=== PATIENT | female | born 1985 | race Caucasian/White ===

== ENCOUNTER → 2019-12-15 14:02 | Outpatient (BNVA) | payer MEDICAID, SELFPAY | PROVIDERS: PCP Internal Medicine; Referring Provider Internal Medicine; Visit Provider Surgery | DX: Z11.0 Encounter for screening for intestinal infectious diseases (principal) | CPT/HCPCS: 99211 ==

== ENCOUNTER 2019-12-15 16:22 | Outpatient (REF) | payer MEDICAID, SELFPAY ==
[2019-12-16 14:27] LABS: H Pylori Breath Test NOT DETECTED (NOT DETECTED)
== END 2019-12-15 16:23 | disposition home or self-care (01) ==
LOC: HO.LNP 16:22
PROVIDERS: Visit Provider Surgery
DX: E66.9 Obesity, unspecified (principal)
CPT/HCPCS: 83013

== ENCOUNTER → 2019-12-18 16:44 | Outpatient (BNVA) | payer MEDICAID, SELFPAY | PROVIDERS: PCP Internal Medicine; Referring Provider Internal Medicine; Visit Provider Dietitian, Registered | DX: Z76.89 Persons encountering health services in other specified circumstances (principal) ==

== ENCOUNTER → 2019-12-21 11:06 | Outpatient (BNVA) | payer MEDICAID, SELFPAY | PROVIDERS: PCP Internal Medicine; Referring Provider Internal Medicine; Visit Provider Surgery | DX: E66.9 Obesity, unspecified (principal); Z68.36 Body mass index [BMI] 36.0-36.9, adult | CPT/HCPCS: 99213 ==

== ENCOUNTER 2019-12-22 09:17 | Outpatient (REF) | payer MEDICAID, SELFPAY ==
--- NOTE | 2019-12-22 | US_ITS ---
EXAMINATION: US COMPLETE ABDOMEN WITH LIVER ELASTOGRAPHY CLINICAL INFORMATION: Morbid obesity. Preop COMPARISON: None. TECHNIQUE: Real-time imaging of the abdominal viscera. Noninvasive ultrasound liver fibrosis assessment is performed using Monik ElastPQ point quantification shear wave elastography (pSWE) with a 5 MHz transducer. Multiple elastography samples are obtained. FINDINGS: PANCREAS: The visualized pancreatic head and body are normal in appearance. The remainder of the pancreas is obscured from visualization by the overlying bowel gas. ABDOMINAL AORTA: The proximal, middle, and distal aortic segments are normal in caliber. INFERIOR VENA CAVA: Visualized portions are normal. LIVER: Liver echotexture is increased. The liver is normal in size and shape. No focal lesion or intrahepatic biliary duct dilatation. The right lobe measures 14 cm in length. The left lobe measures 12 cm in length. The main portal vein is patent with appropriate hepatopedal flow. Shear wave elastography provides a median stiffness of 1.1 m/s (reference: normal median stiffness is 0.81 - 1.22 m/s). The IQR/median stiffness to assess sampling precision is 0.1 (reference: optimal IQR/median stiffness is under 0.3). GALLBLADDER: The gallbladder has been removed. COMMON BILE DUCT: Normal in caliber measuring 0.6 cm in diameter. RIGHT KIDNEY: Normal. No hydronephrosis. No renal calculi or focal parenchymal lesions. The kidney measures 12 cm in maximum dimension. LEFT KIDNEY: Normal. No hydronephrosis. No renal calculi or focal parenchymal lesions. The kidney measures 10.5 cm in maximum dimension. SPLEEN: Normal. The spleen measures 9.8 cm in maximum dimension. FREE FLUID: None. IMPRESSION: 1. Impression: Slightly echogenic liver. Limited visualization of the tail the pancreas. 2. Elastography: Metavir score F0 suggestive of no increased risk of developing liver fibrosis.
--- NOTE | 2019-12-22 09:25 | FL_ITS ---
EXAMINATION: XR GI SERIES CLINICAL INFORMATION: Obesity. COMPARISON: None TECHNIQUE: Routine upper GI series was performed with thick barium and effervescent granules in upright and lying position. FINDINGS: Following oral administration of thick barium and effervescent granules, there is normal propagation bolus from the oral cavity through the pharynx, esophagus into the stomach without any evidence of obstruction, narrowing, or stricture. On placing patient supine and prone lying, the course, caliber and peristalsis of the stomach and the duodenal bulb is normal. There is minimal gastroesophageal reflux but no hiatal hernia seen. FLUOROSCOPY TIME: 1.7 minutes DOSE AREA PRODUCT: 38.5 uGy-m2 (microgray-meter squared) IMPRESSION: Minimal gastroesophageal reflux otherwise unremarkable upper GI air contrast study.
== END 2019-12-22 09:18 | disposition home or self-care (01) ==
LOC: HO.US 09:17
PROVIDERS: PCP Internal Medicine; Visit Provider Surgery
DX: Z01.818 Encounter for other preprocedural examination (principal); E66.01 Morbid (severe) obesity due to excess calories; K21.9 Gastro-esophageal reflux disease without esophagitis
CPT/HCPCS: 74240; 76705; 76981

== ENCOUNTER → 2020-01-07 10:38 | Outpatient (REF) | payer MEDICAID, SELFPAY ==
--- NOTE | 2020-01-07 10:40 | CA_ITS ---
Transthoracic Echocardiogram Patient (Last, First, Middle): La Gallegos, Gender: Female Date of : 1985 Age: 34 Procedure Date: 01/07/2020 Procedure Type: Transthoracic Echocardiogram Location: OP Height: 167.64 cm Weight: 101.61 kg BSA: 2.10 m2 Heart Rate: bpm BP: 106 / 72 mmHg Disk Recoater: Uche MD: Wilber Saldana MD Operations Staff Specialist Security: Kenny Cortez MD Symptoms: PRE-OP HTN Study Quality: Good ECG Rhythm: Sinus Conclusions: - Normal study Findings Left Ventricle Normal left ventricular size, thickness, and systolic function. The visually estimated ejection fraction is between 60-65%. Diastolic function is normal for age. Right Ventricle Normal right ventricular cavity size and systolic function. Atria Both atria are normal in size. There is no evidence of interatrial shunt. Aortic Valve Normal aortic valve structure and function. There is no aortic valve stenosis. There is no aortic valve regurgitation. Mitral Valve Normal mitral valve structure and function. There is trace mitral valve regurgitation. There is no mitral valve stenosis. Pulmonic Valve The pulmonic valve is likely normal. Tricuspid Valve Normal tricuspid valve structure. There is trace tricuspid valve regurgitation. The right ventricular systolic pressure is normal. The right ventricular systolic pressure is 27 mmHg. Normal right atrial pressure. There is no evidence of pulmonary hypertension. Great Vessels All visible segments of the aorta are normal in size. The pulmonary artery was not well visualized. Venous The inferior vena cava is normal in size and collapses greater than 50% with inspiration. Pericardium/Pleural There is no evidence of pericardial effusion. Prior Study Comparison No prior study available for comparison. Measurements 2D Linear Measurements RVIDd: 3.17 RVIDd Index: 1.51 IVSd: 1.06 0.6-0.9/0.6-1.0 cm LVIDd: 4.48 3.9-5.3/4.2-5.9 cm LVIDd Index: 2.13 2.4-3.2/2.2-3.1 cm/m2 LVIDs: 2.76 2.0-3.6 cm LVPWd: 1.29 0.7-1.1 cm Ao Root: 2.90 2.1-3.5 cm LA Diam: 4.00 2.7-3.8/3.0-4.0 cm LAIDs Index: 1.90 1.5-2.3 cm/m2 LV Mass: 237.84 67-162/88-224 g LV Mass Index: 113.26 43-95/49-115 g/m2 LVOT Diam: 2.10 3.0+(-)1.3 cm 2D Systolic Function EF 4C: 60.80 >55% EF 2C: 73.10 >55% EF BiP: 66.90 >55% Mitral Valve MV Pk E: 1.11 MV PK A: 0.58 MV Decel Time: 224.00 E/A: 1.90 E'Lateral: 12.60 E'Medial: 7.72 E/E' Med: 14.40 E/E' Lat: 8.80 Aortic Valve AoV Pk Nael: 1.46 AoV Mn Nael: 0.98 AoV VTI: 0.30 AoV Pk Grad: 9.00 Aov Mn Grad: 4.00 LEMUEL Cont.VTI: 2.44 LVOT LVOT Pk Nael: 1.07 LVOT Mn Nael: 0.63 LVOT VTI: 0.21 LVOT Pk Grad: 5.00 LVOT Mn Grad: 2.00 LVOT Diam: 2.10 LVOT Area: 3.46 Diastolic Function MV Pk E: 1.11 MV Pk A: 0.58 E/A: 1.90 E'Medial: 7.72 E/E' Med: 14.40 E' Laterial: 12.60 E/E' Lat: 8.80 Tricuspid Valve TR Pk Nael: 2.47 TR Pk Grad: 24.00 RA Press: 3.00 RVSP: 27.00 Great Vessels Aorta Ao Root-2D: 2.90 2.0-3.7 cm Ao Asc: 3.10 2.1-3.4 cm Ao Arch: 2.80 Updated in Other Vendor System with Status of Final Kenny Cortze MD electronically signed on 01/08/2020 12:40:17 PM with status of Final
== END ==
LOC: HO.CARD 10:38
PROVIDERS: Visit Provider Surgery
DX: Z01.818 Encounter for other preprocedural examination (principal); I10 Essential (primary) hypertension
CPT/HCPCS: 93306

== ENCOUNTER → 2020-01-18 08:04 | Outpatient (BNVA) | payer MEDICAID, SELFPAY | PROVIDERS: PCP Internal Medicine; Visit Provider Surgery | DX: Z76.89 Persons encountering health services in other specified circumstances (principal) ==

== ENCOUNTER → 2020-01-19 11:32 | Outpatient (BNVA) | payer MEDICAID, SELFPAY | PROVIDERS: PCP Internal Medicine; Visit Provider Dietitian, Registered | DX: Z76.89 Persons encountering health services in other specified circumstances (principal) ==

== ENCOUNTER → 2020-02-09 08:05 | Outpatient (BNVA) | payer MEDICAID, SELFPAY | PROVIDERS: Visit Provider Dietitian, Registered | DX: Z76.89 Persons encountering health services in other specified circumstances (principal) ==

== ENCOUNTER → 2020-02-10 07:47 | Outpatient (BNVA) | payer MEDICAID, SELFPAY | PROVIDERS: Visit Provider Surgery | DX: Z76.89 Persons encountering health services in other specified circumstances (principal) ==

== ENCOUNTER 2020-02-24 09:29 | Outpatient (REF) | payer MEDICAID, SELFPAY ==
[2020-02-24 10:13] LABS: MANUAL DIFF FLAG NO
[2020-02-24 10:15] LABS: Eosinophils Absolute Auto 0.1 X10*3/uL (0.0-0.4); Eosinophils Percent Auto 0.9 % (0-4); Hemoglobin 13.2 g/dl (12.0-16.0); Imm Gran Abs Auto 0.04 X10*3/uL (0.00-0.03); Imm Gran Pct Auto 0.4 % (0.0-0.4); Lymphocytes Absolute Auto 1.8 X10*3/uL (1.2-4.9); Lymphocytes Percent Auto 19.6 % (20-40); Mean Corpuscular HGB Conc 34.7 g/dl (31.0-35.0); Mean Corpuscular Hemoglobin 31.5 pg (27.0-33.0); Mean Corpuscular Volume 90.7 fL (80-98); Mean Platelet Volume 10.7 fL (9.4-12.3); Monocytes Absolute Auto 0.7 X10*3/uL (0.1-1.2); Monocytes Percent Auto 7.9 % (2-11); Neutrophils Absolute Auto 6.4 X10*3/uL (2.0-8.3); Neutrophils Percent Auto 71.2 % (45-73); Platelet Count 334 X10*3/uL (160-400); Red Blood Count 4.19 X10*6/uL (4.20-5.50); Red Cell Distribution Width 14.1 % (11.0-16.0)
[2020-02-24 10:22] LABS: Prothrombin Time 11.4 SEC (10.8-13.0)
[2020-02-24 10:24] LABS: Partial Thromboplastin Time 34.2 SEC (24.1-38.0)
[2020-02-24 10:44] LABS: Estimated Average Glucose 82 mg/dL; Hemoglobin A1c % 4.5 %
[2020-02-24 10:48] LABS: Alanine Aminotransferase 10 U/L (0-31); Albumin Level 4.1 g/dL (3.5-5.0); Alkaline Phosphatase 69 U/L (39-117); Anion Gap 13 (12-20); Aspartate Amino Transferase 14 U/L (5-31); Bilirubin Total 0.9 mg/dL (0.0-1.0); Blood Urea Nitrogen 15 mg/dL (9-16); C Reactive Protein 1.05 mg/dL (< or = 0.50); Calcium 9.3 mg/dL (8.4-10.2); Carbon Dioxide 27 mmol/L (22-29); Chloride 103 mmol/L (96-108); Cholesterol 151 mg/dL; Estimated Glomerular Filt Rate > 60; Glucose Random 84 mg/dL (60-115); HDL Cholesterol 56 mg/dL; LDL Cholesterol Calculated 80 mg/dl; Potassium 4.2 mmol/l (3.3-5.1); Sodium 139 mmol/L (135-145); Total Protein 7.6 g/dL (6.5-8.0); Triglycerides 76 mg/dL
[2020-02-24 11:08] LABS: TSH reflex Free T4 1.33 mIU/mL (0.32-4.0)
== END 2020-02-24 09:30 | disposition home or self-care (01) ==
LOC: HO.LAB 09:29
PROVIDERS: PCP Internal Medicine; Visit Provider Surgery
DX: E66.9 Obesity, unspecified (principal); I10 Essential (primary) hypertension; R79.89 Other specified abnormal findings of blood chemistry
CPT/HCPCS: 36415; 80053; 80061; 83036; 83525; 84443; 85025; 85610; 85730; 86140

== ENCOUNTER 2020-03-01 17:15 | Inpatient (IN) | payer MEDICAID, SELFPAY ==
[2020-02-24 12:14] VITALS: BMI 32.9
[2020-02-25 09:03] VITALS: BMI 32.9
--- NOTE | 2020-02-29 11:04 | HO.ANESPROP2 ---
Documented by User: Patricia Staley 02/29/20 11:06 HPI - Anesthesia Eval Consult details Narrative: 34yo F for Gastrectomy Sleeve PMFSH Past Medical History Medical History Hypertension Family History Family History Father HTN (hypertension) Stenosis colon Mother Depression Migraines Vertigo HTN (hypertension) Stenosis colon Post-operative nausea and vomiting Brother No problems noted. Brother No problems noted. Daughter No problems noted. Daughter No problems noted. Surgical History Surgical History History of wisdom tooth extraction, class I edentulism Obesity S/P cholecystectomy S/P colonoscopy S/P endoscopy S/P ovarian cystectomy S/P rotator cuff surgery Social History Social History Alcohol intake: never Smoking Status: Former smoker Tobacco Type: Cigarette Cigarettes Per Day: 0 Smoked in Last 30 Days: No Smoking Quit Date: 01/25/2020 Use of substances other than those prescribed or required for medical reasons: No Meds Allergies Allergy/AdvReac Type Severity Reaction Status Date / Time No Known Allergies Allergy Verified 02/24/20 16:18 Home Medications Medication Instructions Recorded Confirmed Type amlodipine 5 mg PO DAILY 02/24/20 02/24/20 History hydrochlorothiazide 25 mg PO DAILY 02/24/20 02/24/20 History Exam Exam Date and Time: February 29, 2020 1104 Height,Weight and Vital Signs: Height 5 ft 6 in Weight 92.533 kg Pertinent Lab Results Pertinent Lab Results: Laboratory Tests 02/24/20 09:32 Blood Type A Positive Antibody Screen NEGATIVE Laboratory Tests 02/24/20 02/24/20 09:40 09:40 WBC 9.0 Hgb 13.2 Hct 38.0 Plt Count 334 Sodium 139 Potassium 4.2 Chloride 103 Carbon Dioxide 27 BUN 15 Creatinine 0.77 Narrative Narrative: EKG 11/2019: NSR Echo 2020: Nml Study Assessment and Plan Assessment Anesthesia Assessment: Chart Reviewed Documented by User: Danni Yadav 03/01/20 13:44 PMFSH Past Medical History Medical History Hypertension Family History Family History Father HTN (hypertension) Stenosis colon Mother Depression Migraines Vertigo HTN (hypertension) Stenosis colon Post-operative nausea and vomiting Brother No problems noted. Brother No problems noted. Daughter No problems noted. Daughter No problems noted. Surgical History Surgical History History of wisdom tooth extraction, class I edentulism Obesity S/P cholecystectomy S/P colonoscopy S/P endoscopy S/P ovarian cystectomy S/P rotator cuff surgery Social History Social History Alcohol intake: never Smoking Status: Former smoker Tobacco Type: Cigarette Cigarettes Per Day: 0 Smoked in Last 30 Days: No Smoking Quit Date: 01/25/2020 Use of substances other than those prescribed or required for medical reasons: No Meds Allergies Allergy/AdvReac Type Severity Reaction Status Date / Time No Known Allergies Allergy Verified 02/24/20 16:18 Home Medications Medication Instructions Recorded Confirmed Type amlodipine 5 mg PO DAILY 02/24/20 02/24/20 History hydrochlorothiazide 25 mg PO DAILY 02/24/20 02/24/20 History Exam Airway Mallampati Class: II TM Dist: >3cm Neck ROM: Full Heart: RRR Lungs: CTA Assessment and Plan Assessment Anesthesia Assessment: Anesthesia Plan Discussed Final Anesthetic Review NPO: Yes ASA Class: II Final Preanesthetic Review: Meds/Allgs Chart Reviewed, Consent Obtained/Reviewed and Anes Risks/Benef Reviewed Patient Risk: Low Procedure Risk: Intermediate Anesthetic Plan Anesthetic Plan: GA Disposition: Standard PACU
[2020-03-01] VITALS (13 sets, daily range): BP systolic 137–158; BP diastolic 72–102; PULSE 66–83; RESP 12–20; TEMP 35.9–36.4; O2SAT 95–100
--- NOTE | 2020-03-01 11:18 | MHC.SHP ---
Pre-Procedural Eval Section A The patient is an INPATIENT: Yes The History & Physical has been completed within 30 days and I have reviewed it.: Yes Section B Chief Complaint: severe obesity Details of Present Illness: Severe obesity Relevant Family History (Specify if Yes): No Relevant Social History: None Present Medications: see Short Stay Collaborative assessment Medical History: No relevant PMH History of Previous Operations: No relevant previous surgery Allergies: Allergies Allergy/AdvReac Type Severity Reaction Status Date / Time No Known Allergies Allergy Verified 02/24/20 16:18 Review of Systems Sugical H&P ROS: Negative: Constitution, Cardiovascular, Respiratory, Neurological, Psychiatric, Hem-Onc, Allergic/Immunologic, Gastrointestinal, Genitourinary, Musculoskeletal, Integumentary, Endocrine and Eyes/Ears/Nose/Throat Exam Surgical H&P Exam: Normal: HEENT, Normal: Heart, Normal: Lungs, Normal: Extremities, Normal: Abdomen, Normal: Skin and Normal: Neurological Plan Diagnosis/Plan: Unchanged I have reviewed the history and physical and performed a pertinent physical examination on my patient. No changes have occurred unless specified.
[2020-03-01 12:04] LABS: UPreg QC Valid YES; Urine Pregnancy NEGATIVE (NEGATIVE)
[2020-03-01 12:17] LABS: COVID-19 Test Negative (Negative); IDNOW Serial# 9DD0AD1C
[2020-03-01] MEDS: ceFAZolin Sodium/Dextrose,Iso 2 GM/50 ML PIGGYBACK IV ×2 (12:38→20:17)
[2020-03-01] MEDS: Lactated Ringers 1,000 ML 100 ML IVCONT (12:39)
[2020-03-01] MEDS: Lactated Ringers 1,000 ML 999 ML IVCONT (12:39)
--- NOTE | 2020-03-01 17:22 | P.DS_ITS ---
DS: Providers Provider Primary care physician: Marlene Conn MD DS: Medications Discharge Medications Home Medications: Home Medications Medication Instructions Recorded Confirmed amlodipine 5 mg PO DAILY 02/24/20 02/24/20 hydrochlorothiazide 25 mg PO DAILY 02/24/20 02/24/20 Previous Rx's Medication Instructions Recorded cholecalciferol (vitamin D3) 25 25 mcg PO DAILY #30 cap 12/09/19 mcg (1,000 unit) capsule mecobalamin (vitamin B12) 1,000 1,000 mcg SUBLINGUAL DAILY #30 tab 12/09/19 mcg disintegrating tablet,sublingual ondansetron HCl 4 mg tablet 4 mg PO Q6H PRN #30 tab 02/10/20 pantoprazole 40 mg tablet,delayed 40 mg PO DAILY #30 tab 02/10/20 release polyethylene glycol 3350 17 gram 17 g PO DAILY #14 ea 02/10/20 oral powder packet sucralfate 100 mg/mL oral 10 ml PO BID #420 ml 02/10/20 suspension DS: Summary Time Spent with Patient Time attestation: ADMITTING DIAGNOSIS: morbid obesity, hypertension, hiatal hernia DISCHARGE DIAGNOSIS: same, s/p laparoscopic sleeve gastrectomy and repair of hiatal hernia PAST SURGICAL HISTORY: lap evan, ovarian cystectomy, rotator cuff repair, EGD, colonoscopy PROCEDURE: upper endoscopy, laparoscopic sleeve gastrectomy with gastropexy and repair of hiatal hernia DISCHARGE SUMMARY: History of Present Illness: The patient is a 34 year-old woman with a BMI of 37.18 kg/m2 and associated co- morbidities as described above. The patient had extensive work-up,lost 26 lbs preoperatively and was electively scheduled for laparoscopic, possible open sleeve gastrectomy and gastropexy and repair of hiatal hernia. Risks and complications of the surgery were discussed with the patient in advance, particularly the possibility of , pulmonary embolism, anastomotic leak, bleeding, bowel injury, GERD, cardiac, renal or pulmonary complications. The patient understood all the risks and was in agreement with the surgical plan. Hospital Course: The patient underwent an uneventful laparoscopic sleeve gastrectomy with gastropexy the day of admission. Postoperatively, the patient was transferred to the surgical floor. The patient was on IV Acetaminophen and IV dilaudid for pain control. Patient was started on bariatric phase 1 diet POD #0. On postoperative day one, the patient was feeling well without nausea, vomiting, fevers, or tachycardia. The patient had some mild incisional pain. The abdomen was soft. On the morning of postoperative day one, the patient was continued on 1 ounce of water or ice every half hour. During the first day, the patient did fairly well, having some incisional pain, but able to ambulate adequately and to tolerate liquids well. Since the patient is doing well, we decided that the patient was ready to be discharged. The patient was given instructions to follow-up with me next week and to call my office for any fever over 101, persistent abdominal pain, nausea, vomiting, GERD, symptoms of DVT such as calf tenderness, or leg swelling, or pulmonary embolism such as chest pain or shortness of breath. The patient was al so instructed to drink 40-60 ounces of liquids per day using the 1-ounce cups. The patient was given prescription for Tylenol for pain, Zofran prn for nausea, and pantoprazole and carafate. The patient was encouraged to ambulate and use the incentive spirometer. The patient was allowed to shower, but no baths, and encouraged to stay active at home. All of these instructions were given to the patient personally. All questions were answered and the patient understood all instructions, the instructions were also given to the patient in print. Total time spent providing and/or coordinating discharge services: Physical Exam Vital Signs: Vital Signs: Last Vital Signs Temp 97.3 F 03/01/20 17:13 Pulse 74 03/01/20 17:13 Resp 12 03/01/20 17:13 BP 137/94 H 03/01/20 17:13 Pulse Ox 96 03/01/20 17:13 Body Mass Index 32.9 DS: Data Data Completed and Pending Pending studies at discharge: Pending at discharge 03/01/20 16:57 Surgical [PTH] Routine Labs on day of discharge: 02/24/20 09:32 Type and Screen Routine 03/01/20 11:19 ceFAZolin Sodium/Dextrose,Iso [Ancef] 2 gm in 50 ml IV PREOP 03/01/20 11:30 Lactated Ringers [Lr] 1,000 ml IVCONT 999 mls/hr 03/01/20 11:40 COVID-19 ID NOW ([facility]) Stat Ur Preg Test Stat 03/01/20 11:46 Acetaminophen [Ofirmev] 1,000 mg in 100 ml IV PREOP Laboratory Last Values Urine Test NEGATIVE (NEGATIVE) 03/01/20 11:40 COVID-19 ([facility]INDER) Negative (Negative) 03/01/20 11:40 COVID-19 Clin Com See Note 03/01/20 11:40 Blood Type A Positive 02/24/20 09:32 Antibody Screen NEGATIVE 02/24/20 09:32 Discharge Plan Discharge Anticipated Discharge Date/Time: 03/02/20 11:00 Patient Disposition: Home, Self-Care Referrals: Marlene Conn MD [Primary Care Provider] - Discharge Medications: Continued amlodipine 5 mg Tablet 5 mg PO DAILY RF: 0 hydrochlorothiazide 25 mg Tablet 25 mg PO DAILY RF: 0 pantoprazole 40 mg tablet,delayed release (DR/EC) 40 mg PO DAILY Qty: 30 RF: 2 sucralfate 100 mg/mL suspension 10 ml PO BID Qty: 420 RF: 2 ondansetron HCl [Zofran] 4 mg tablet 4 mg PO Q6H PRN (Reason: nausea and vomiting) Qty: 30 RF: 0 Discontinued cholecalciferol (vitamin D3) 25 mcg (1,000 unit) capsule 25 mcg PO DAILY Qty: 30 RF: 5 mecobalamin (vitamin B12) 1,000 mcg tablet,disintegrating 1,000 mcg sublingual DAILY Qty: 30 RF: 5 polyethylene glycol 3350 [Miralax] 17 gram powder in packet 17 g PO DAILY Qty: 14 RF: 0 Discharge Orders: Discharge Order (Routine); Ordered 03/02/20 Ordered By: Wilber Saldana Diet: other Activity on Discharge: No heavy lifting Discharge Date/Time: 03/02/20 12:10 Activity Restrictions/Additional Instructions: No tub baths, sex or returning to work until discussed at first post op appointment. No exercise, alcohol, tobacco or illegal drug use. Continue to use incentive spirometer hourly while awake. Walk in home for 5- 10 minutes every 2 hours during the first week. Continue phase 1 diet today and start phase 2 diet tomorrow morning. Follow all instructions in the bariatric handbook and call with any questions. Visit Report Forms: Patient Portal Discharge page Care Plan Goals: weight loss Health Concerns: obesity Plan of Treatment: see discharge instructions
[2020-03-01 18:19] LABS: Hematocrit 37.8 % (37-47); Hemoglobin 13.1 g/dl (12.0-16.0)
[2020-03-01 18:41] LABS: Anion Gap 13 (12-20); Blood Urea Nitrogen 8 mg/dL (9-16); Calcium 8.3 mg/dL (8.4-10.2); Carbon Dioxide 24 mmol/L (22-29); Chloride 105 mmol/L (96-108); Creatinine Clr Calc Pharmacy 118.3; Estimated Glomerular Filt Rate > 60; Glucose Random 131 mg/dL (60-115); Potassium 3.7 mmol/l (3.3-5.1); Sodium 138 mmol/L (135-145)
[2020-03-01] MEDS: HYDROmorphone HCl 0.5 MG/0.5 ML SYRINGE 0.25 MG IVPUSH ×2 (19:39→23:18)
[2020-03-01] MEDS: Lactated Ringers 1,000 ML 150 ML IVCONT (19:49)
--- NOTE | 2020-03-01 20:10 | PM.OP ---
Brief Operative Note Date of Service: 03/01/20 Pre-op diagnosis: Severe obesity and comorbidities (see below for details) Post-op diagnosis: same (& diaphragmatic hernia) Procedure: INITIAL PATIENT BMI ON PRESENTATION AT OUR OFFICE: 37.18 kg/m2 LAST BMI BEFORE SURGERY: 32.18 kg/m2 COMORBIDITIES: Hypertension, GERD, Fibromyalgia, migraines, liver steatosis The patient participated in an intensive weekly lifestyle intervention and exercise program during which the patient has lost between the initial office visit and the last preoperative visit 26.4 lbs, or 11.46% of initial actual body weight. The patient met the BMI-criteria for bariatric surgery based on the BMI on initial presentation. The patient should not be penalized for achieving such weight loss because it is not sustainable long-term without surgical intervention and it was achieved in preparation for bariatric surgery under my direction and based on my published research ([email or web address] and [email or web address]) that a 10% preoperative weight loss improves long-term weight loss after surgery and reduces perioperative complications. Insurance carriers such as [facility] have endorsed my recommendations and have included in their policies criteria to include a 10% preoperative weight loss requirement. PROCEDURE: Esophago-gastroscopy, laparoscopic repair of incarcerated diaphragmatic hernia, laparoscopic lysis of adhesions, laparoscopic sleeve gastrectomy and laparoscopic gastropexy INDICATIONS: This is a 34 year-old female who was electively scheduled for laparoscopic, possibly open sleeve gastrectomy. The risks and complications of the procedure were discussed with the patient in advance, particularly the possibility of ; pulmonary embolism; staple line leak; bleeding; GERD; cardiac, pulmonary, or renal complications; as well as long-term problems such as insufficient weight loss, vitamin deficiency, strictures, or ulcers. The patient understood all the risks, and was in agreement to proceed with surgery. DESCRIPTION OF PROCEDURE: After informed consent was obtained from the patient, the patient was given preoperative antibiotics, and was transferred to the operating room. After successful induction of general anesthesia, pneumatic compressive devices were placed on both lower extremities. An upper endoscopy was performed next. The oropharynx and esophagus appeared to be within normal limits. There was a diaphragmatic hernia present of moderate size which was not reported at the preoperative upper GI. The stomach was entered. Then after all fluid and air were suctioned and the stomach was fully decompressed, the scope was withdrawn and secured in the mid esophagus. The patient was then prepped and draped in the usual sterile manner, and abdominal access was established at the right upper quadrant with the Maxi technique. A 12 mm blunt port was inserted, and the abdomen was insufflated with CO2 to a pressure of 15 mmHg. Under direct visualization, additional ports were placed, specifically two 5 mm Versi-step ports to the left upper quadrant, and a 5 mm Versi-Step port to the right upper quadrant. 1% lidocaine plan was used to infiltrate all port sites as well as all fascia defects. Using the EndoClose suture passer device, we placed a #1 Polysorb tie across the falciform ligament in order to retract it up against the abdominal wall and prevent injury of the ligament with our instruments during the procedure. Following that, the patient was placed in a steep reverse Trendelenburg position. An additional 5 mm port was placed to the right flank for the Mediflex retractor that was used to retract the left lobe of the liver. The gastro-esophageal fat pad was opened with the ultrasonic device (Thunderbeat, Olympus) and the anterior esophagus and hiatus were exposed. The angle of His was opened with the ultrasonic device the fundus of the stomach from any diaphragmatic and splenic attachments. I then opened the gastrocolic ligament between the transverse colon and the greater curvature of the stomach with the ultrasonic device to enter the lesser sac and facilitate the ligation of the short gastric vessels. I started at a mid-point along the greater curvature and using the Thunderbeat, all short gastric vessels were divided all the way to the angle of His until the left lashon was completely dissected at its entirety. I then divided the gastro-colic ligament distally to a distance of about 3-4 cm proximal to the esophagus. There were extensive congenital adhesions between the pancreas and posterior gastric wall. Those were lysed completely with the ultrasonic device. Adhesiolysis took approximately 45 min to complete. There was an obvious significant-sized hiatal hernia. I continued dissecting along the hiatus toward the left lashon and the angle of His. I fully mobilized the fat pad that was incarcerated in the hernia. I then continued by dissecting even further into the posterior retro-esophageal space all the way to the angle of His. I continued to mobilize the esophagus into the mediastinum circumferentially. Both vagal nerves were seen and preserved. The right lashon was also mobilized at its entirety. At that point, I was able to have at least 3 to 5 cm of esophagus into the abdomen. After I completely mobilized the esophagus from both the left and right lashon and I had a good mobilization of the esophagus circumferentially, I closed the hernia defect with three interrupted #0 Surgidac suture using the Endo Stitch device, two of which were placed posterior to and one anterior to the esophagus. The stomach was then divided transversely with one Endo KOFI-45 purple and four KOFI-60 articulating orange loads using the AEON stapler and loads. Every effort was made that the gastric sleeve had a tubular shape and an even caliber throughout. Once the sleeve resection was completed, the staple line of the gastric sleeve was reinforced with Hemoclips. The resected stomach was retrieved without difficulty from the Maxi port. A gastropexy was then performed in order to prevent postoperative GERD and partial gastric volvulus. Several interrupted 2.0 Surgidac sutures were placed between the sleeve's staple line and the previously divided greater omentum and gastro-colic ligament using the Endo-Stitch device. An upper endoscopy was performed. There was no narrowing at the GE junction. The scope was easily advanced all the way to the pylorus which was clearly visualized. There was no narrowing anywhere and the sleeve's caliber was even throughout. The sleeve's staple line was inspected and there was no evidence of ischemia, bleeding or dehiscence. At that point the gastroscope was withdrawn from the patient?s mouth while we were decompressing the bowel and the stomach from any remaining air. I looked into the lesser sac to see how the sleeve was situating and it was situating well. There was no bleeding from the staple line, spleen, or short gastric vessels. The Mediflex retractor was removed, and the undersurface of the liver was inspected and there was no bleeding. The patient was placed in supine position. I closed the fascial defect of the 12 mm port site with a figure of eight #1 Polysorb suture. Then 100 cc 0.25 % Marcaine plain with 10 mg of Dexamethasone were used to infiltrate the fascial closure as well as all skin incisions. At this point, the abdomen was deflated, all ports were removed under direct vision, and no bleeding was noted from any of the port sites. The skin incisions were irrigated with saline and were closed with 4-0 absorbable monofilament sutures. Steri-Strips and OpSites were used to cover all incisions. The patient was extubated and was transferred in stable condition to the recovery room for further care. I was present and performed all liu parts of the procedure. Ms. Tinoco was the cataloging assistant. There were no residents to assist with this case. Mitesh Saldana MD, PhD, FACS Surgeon: Wilber Saldana MD Anesthesia: GETA, local and other (TAP block) Creative Perfumer: Tsering Tinoco Estimated blood loss (mL): 10 IV fluids (mL): 2,500 Urine output (mL): 0 (No Bean to record) Pathology: other (Stomach) Condition: stable Disposition: PACU
[2020-03-01] MEDS: Famotidine/PF 20 MG/2 ML VIAL IVPUSH (20:17)
--- NOTE | 2020-03-01 20:17 | PM.PNGS ---
Subjective Subjective Date of Service: 03/02/20 Interval history: Patient has mild incisional pain. Was able to ambulate and use the incentive spirometer. Tolerating liquids over night. Had some nausea earlier but resolved. Physical Exam Vital Signs: Vital Signs: Last Vital Signs Temp 96.7 F L 03/01/20 20:13 Pulse 83 03/01/20 20:13 Resp 18 03/01/20 20:13 BP 138/92 H 03/01/20 20:13 Pulse Ox 100 03/01/20 20:13 Body Mass Index 32.9 GI: Inspection: Yes normal to inspection, Yes incision (dry and intact) and Yes obesity Extrem: Right lower extremity: normal to inspection (no calf tenderness) Left lower extremity: normal to inspection (no calf tenderness) Progress Note: A&P Assessment and plan (1) Obesity: Status: Acute (2) Hypertension: Status: Acute (3) BMI 32.0-32.9,adult: Status: Acute (4) GERD (gastroesophageal reflux disease): Status: Acute (5) Diaphragmatic hernia: Status: Acute (6) Steatosis, liver: Status: Acute (7) Congenital intra-abdominal adhesions: Status: Acute (8) S/P laparoscopic sleeve gastrectomy: Status: Acute Assessment and Plan: 34 year old female was admitted 03/01/20 with morbid obesity and comorbidities. Problem 1: s/p laparoscopic sleeve gastrectomy, gastropexy, diaphragmatic hernia repair and lysis of adhesions Status: Doing well Plan: Check am labs, If OK, will continue phase 1 bariatric diet and discharge later today. (9) S/P repair of paraesophageal hernia: Status: Acute (10) Fibromyalgia: Status: Acute (11) Migraines: Status: Acute Fall Risk Details Current Medications: Current Medications Generic Name Dose Route Start Last Admin Trade Name Freq PRN Reason Stop Dose Admin Albuterol Sulfate 2.5 mg 03/01/20 13:45 Albuterol Sulfate (0.083%) 2.5 Mg/3 Ml Vial.Neb INHALE ONCE PRN Wheezing Amlodipine Besylate 5 mg 03/02/20 09:00 Amlodipine Besylate 5 Mg Tablet PO DAILY [facility] Protocol Famotidine 20 mg 03/01/20 21:00 Famotidine/Pf 20 Mg/2 Ml Vial IVPUSH BID [facility] Fentanyl 50 mcg 03/01/20 13:45 Fentanyl Citrate/Pf 100 Mcg/2 Ml Vial IVPUSH Q5M PRN Pain, Severe (Pain Scale 7-10) Fentanyl 25 mcg 03/01/20 13:45 Fentanyl Citrate/Pf 100 Mcg/2 Ml Vial IVPUSH Q5M PRN Pain, Moderate (Pain Scale 4-6 Hydromorphone HCl 0.25 mg 03/01/20 17:15 03/01/20 19:39 Hydromorphone Hcl 0.5 Mg/0.5 Ml Syringe IVPUSH 0.25 mg Q4H PRN Administration Pain, Moderate (Pain Scale 4-6 Hydromorphone HCl 0.25 mg 03/01/20 18:05 Hydromorphone Hcl 0.5 Mg/0.5 Ml Syringe IVPUSH Q5M PRN Pain, Severe (Pain Scale 7-10) Promethazine HCl 6.25 mg/ 50.25 mls @ 201 mls/hr 03/01/20 13:45 Sodium Chloride IV ONCE PRN Nausea and Vomiting Lactated Ringer's 1,000 mls @ 150 mls/hr 03/01/20 17:15 03/01/20 19:49 Lr IVCONT 150 mls/hr .Q6H40M MEGHANN Administration Cefazolin Sodium/Dextrose 2 gm in 50 mls @ 100 mls/hr 03/01/20 20:00 Ancef IV 03/01/20 20:29 POSTOP ONE Acetaminophen 1,000 mg in 100 mls @ 16.7 mls/hr 03/01/20 23:00 Ofirmev IV .Q6H MEGHANN Metoclopramide HCl 10 mg 03/01/20 17:15 Metoclopramide Hcl 10 Mg/2 Ml Vial IVPUSH Q6H PRN Nausea Ondansetron HCl 4 mg 03/01/20 17:15 Ondansetron Hcl 4 Mg/2 Ml Vial IVPUSH Q8H MEGHANN Oxycodone HCl 10 mg 03/01/20 13:45 Oxycodone Hcl Immed Release 5 Mg Tablet PO ONCE PRN Pain, Severe (Pain Scale 7-10) Oxycodone HCl 5 mg 03/01/20 13:45 Oxycodone Hcl Immed Release 5 Mg Tablet PO ONCE PRN Pain, Severe (Pain Scale 7-10) Sodium Chloride 3 ml 03/02/20 00:00 0.9 % Sodium Chloride Flush 3 Ml Syringe IVFLUSH QSHIFT MEGHANN Time Spent With Patient Time: Total time spent is greater than 50% in coordination of care (as documented) at patient's floor/unit and/or counseling patient: Time with patient: less than 15 minutes
[2020-03-01] MEDS: 0.9 % Sodium Chloride Flush 3 ML SYRINGE IVFLUSH (20:18)
[2020-03-02] MEDS: ondansetron HCL 4 MG/2 ML VIAL IVPUSH ×2 (01:03→08:19)
[2020-03-02 04:00] VITALS: BP 153/99; PULSE 93; RESP 16; TEMP 36.4; O2SAT 97
[2020-03-02] MEDS: Lactated Ringers 1,000 ML 100 ML IVCONT (04:03)
[2020-03-02] MEDS: oxyCODONE HCl Immed Release 5 MG TABLET PO (06:07)
[2020-03-02 06:58] LABS: Basophils Percent Auto 0.1 % (0-2); Hematocrit 37.1 % (37-47); Imm Gran Abs Auto 0.04 X10*3/uL (0.00-0.03); Imm Gran Pct Auto 0.4 % (0.0-0.4); Lymphocytes Absolute Auto 0.7 X10*3/uL (1.2-4.9); Lymphocytes Percent Auto 6.4 % (20-40); MANUAL DIFF FLAG SCAN; Mean Corpuscular Hemoglobin 31.7 pg (27.0-33.0); Mean Corpuscular Volume 90.5 fL (80-98); Mean Platelet Volume 10.9 fL (9.4-12.3); Monocytes Absolute Auto 0.2 X10*3/uL (0.1-1.2); Monocytes Percent Auto 1.9 % (2-11); Neutrophils Absolute Auto 9.9 X10*3/uL (2.0-8.3); Neutrophils Percent Auto 91.2 % (45-73); Platelet Count 307 X10*3/uL (160-400); Red Cell Distribution Width 13.5 % (11.0-16.0); SCAN SMEAR FLAG 1; White Blood Count 10.9 X10*3/uL (4.8-10.8)
[2020-03-02] MEDS: Metoclopramide HCl 10 MG/2 ML VIAL IVPUSH (07:12)
[2020-03-02] MEDS: 0.9 % Sodium Chloride Flush 3 ML SYRINGE IVFLUSH (07:14)
[2020-03-02 07:24] LABS: Anion Gap 14 (12-20); Blood Urea Nitrogen 7 mg/dL (9-16); Calcium 8.6 mg/dL (8.4-10.2); Carbon Dioxide 22 mmol/L (22-29); Chloride 103 mmol/L (96-108); Creatinine Clr Calc Pharmacy 128.5; Estimated Glomerular Filt Rate > 60; Glucose Random 124 mg/dL (60-115); Potassium 4.4 mmol/l (3.3-5.1); Sodium 135 mmol/L (135-145)
[2020-03-02 07:33] LABS: SLIDE REVIEW VERIFIED
[2020-03-02 07:51] VITALS: BP 141/90; PULSE 87; RESP 18; TEMP 36.6; O2SAT 96
[2020-03-02] MEDS: Famotidine/PF 20 MG/2 ML VIAL IVPUSH (08:18)
[2020-03-02] MEDS: amLODIPine Besylate 5 MG TABLET PO (08:18)
--- NOTE | 2020-03-02 11:14 | HO.POSTANES ---
Post Anesthesia Evaluation Post Anesthesia Evaluation Vital Signs: Vital Signs Temp Pulse Resp BP Pulse Ox 03/02/20 07:51 98 F 87 18 141/90 H 96 03/02/20 04:00 97.5 F 93 16 153/99 H 97 03/01/20 23:18 20 Anesthesia: General Endotracheal-GETA Mental Status: Awake Pain Control: Satisfactory Nausea/Vomiting: None Hydration: Adequate Anesthesia-Related Issues: No Anes. Related Issues
[2020-03-02 11:28] VITALS: BP 137/77; PULSE 84; RESP 18; TEMP 36.9; O2SAT 99
--- NOTE | 2020-03-02 11:42 | MHC.CM.PN ---
NURSE LOADER DEMOLDER NOTE ELECTRONIC MEDICAL RECORD REVIEWED ALONG WITH MEETING WITH PATIENT , EXPLAINED THE ROLE F THE NURSE LOADER DEMOLDER IN THE TRANSITION FROM THE HOSPITAL TO HOME. 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
== END 2020-03-02 12:10 | disposition home or self-care (01) | DRG 403 ==
PROVIDERS: Nurse Practitioner; Physician Assistant; Admitting Provider Surgery; PCP Internal Medicine; Visit Provider Surgery
PROC: 0DB64Z3 Excision of Stomach, Percutaneous Endoscopic Approach, Vertical (ICD-10-PCS; CPT 43845; principal; 2020-03-01 13:00)
DX: E66.01 Morbid (severe) obesity due to excess calories (principal); K76.0 Fatty (change of) liver, not elsewhere classified; K44.0 Diaphragmatic hernia with obstruction, without gangrene; G43.909 Migraine, unspecified, not intractable, without status migrainosus; K66.0 Peritoneal adhesions (postprocedural) (postinfection); I10 Essential (primary) hypertension; Z68.32 Body mass index [BMI] 32.0-32.9, adult; Z20.828 Contact with and (suspected) exposure to other viral communicable diseases; K21.9 Gastro-esophageal reflux disease without esophagitis; Z79.899 Other long term (current) drug therapy
CPT/HCPCS: 36415; 80048; 81025; 85014; 85018; 85025; 86850; 86900; 86901; 87635; 88307; 88342; 99024; A4649; J0131; J0690; J1100; J1170; J2250; J2370; J2405; J2765; J3010

== ENCOUNTER → 2020-03-09 11:39 | Outpatient (BNVA) | payer MEDICAID, SELFPAY | PROVIDERS: Visit Provider Surgery | DX: E66.9 Obesity, unspecified (principal) | CPT/HCPCS: 99212 ==

== ENCOUNTER → 2020-04-11 08:10 | Outpatient (BNVA) | payer MEDICAID, SELFPAY | PROVIDERS: Visit Provider Surgery | DX: E66.3 Overweight (principal) | CPT/HCPCS: 99212 ==